=== PATIENT | female | born 1980 | race African-American/Black ===

== ENCOUNTER 2020-04-28 11:37 | Day surgery (SDC) | payer OTHER, SELFPAY ==
[~2020-04-28] VITALS: Ht 160 cm; Wt 95.3 kg
[2020-04-28] MEDS ORDERED: fentaNYL citrate 0.05 MG/ML VIAL ONE (12:42)
[2020-04-28] MEDS ORDERED: diphenhydrAMINE 50 MG/ML VIAL ONE (12:42)
[2020-04-28] MEDS ORDERED: MIDAZOLAM 5 MG/5 ML VIAL ONE (12:43)
[2020-04-28] MEDS ORDERED: LIDOCAINE 2% 100 MG/5 ML UJET TP ONE (12:43)
[2020-04-28] MEDS ORDERED: MIDAZOLAM 2 MG/2 ML VIAL IVP ONE (13:55)
[2020-04-28] MEDS ORDERED: fentaNYL citrate 0.05 MG/ML VIAL IVP ONE (13:55)
== END 2020-04-28 14:30 | disposition home or self-care (01) ==
LOC: MDS 11:37 → MFCC 11:38 → MDS 14:30
PROVIDERS: ATTEND Internal Medicine Gastroenterology
DX: K59.00 Constipation, unspecified (principal); R10.9 Unspecified abdominal pain; Z79.899 Other long term (current) drug therapy; Z20.828 Contact with and (suspected) exposure to other viral communicable diseases
CPT/HCPCS: 43235; 45378; J2250; J3010; U0003; J1200

== ENCOUNTER 2022-07-04 08:37 | Day surgery (SDC) | payer OTHER ==
[~2022-07-04] VITALS: Ht 162.6 cm; Wt 81.6 kg
[2022-07-04] MEDS ORDERED: diphenhydrAMINE 50 MG/ML VIAL ONE (09:26)
[2022-07-04] MEDS ORDERED: fentaNYL citrate 0.05 MG/ML VIAL ONE (09:27)
[2022-07-04] MEDS ORDERED: MIDAZOLAM 5 MG/5 ML VIAL ONE (09:27)
[2022-07-04] MEDS ORDERED: LIDOCAINE 2% 100 MG/5 ML UJET TP ONE (09:27)
[2022-07-04] MEDS ORDERED: diphenhydrAMINE 50 MG/ML VIAL IVP ONE (10:10)
[2022-07-04] MEDS ORDERED: MIDAZOLAM 2 MG/2 ML VIAL IVP ONE (10:10)
[2022-07-04] MEDS ORDERED: fentaNYL citrate 0.05 MG/ML VIAL IVP ONE (10:10)
== END 2022-07-04 12:18 | disposition home or self-care (01) ==
LOC: MDS 08:37 → MMU 08:38 → MDS 12:18
PROVIDERS: ATTEND Internal Medicine Gastroenterology
DX: R63.4 Abnormal weight loss (principal); K51.50 Left sided colitis without complications; B96.81 Helicobacter pylori [H. pylori] as the cause of diseases classified elsewhere; I10 Essential (primary) hypertension; F41.9 Anxiety disorder, unspecified; G43.909 Migraine, unspecified, not intractable, without status migrainosus; K21.9 Gastro-esophageal reflux disease without esophagitis; Z98.1 Arthrodesis status; Z79.899 Other long term (current) drug therapy; Z20.822 Contact with and (suspected) exposure to COVID-19; Z98.890 Other specified postprocedural states
CPT/HCPCS: 43239; 45380; 87426; J1200; J2250; J3010